=== PATIENT | female | born 1965 | race Caucasian/White ===

== ENCOUNTER 2017-08-29 08:25 | Outpatient (CLI) | payer OTHER | END 2017-08-29 08:26 | disposition home or self-care (01) | LOC: CTENTCT 08:25 | PROVIDERS: ATTEND Specialist | DX: J32.9 Chronic sinusitis, unspecified (principal) | CPT/HCPCS: 70486 ==

== ENCOUNTER 2021-03-22 10:40 | Outpatient (CLI) | payer OTHER | END 2021-03-22 10:41 | disposition home or self-care (01) | LOC: BICRAD 10:40 | PROVIDERS: ATTEND Specialist | DX: J18.9 Pneumonia, unspecified organism (principal); R05 Cough | CPT/HCPCS: 71046 ==

== ENCOUNTER 2022-05-31 10:30 | Outpatient (CLI) | payer OTHER | END 2022-05-31 10:31 | disposition home or self-care (01) | LOC: NM 10:30 | PROVIDERS: ATTEND Specialist | DX: K81.9 Cholecystitis, unspecified (principal) | CPT/HCPCS: 78227; A9537 ==

== ENCOUNTER 2023-07-04 08:46 | Outpatient (CLI) | payer OTHER | END 2023-07-04 08:47 | disposition home or self-care (01) | LOC: RAD 08:46 | PROVIDERS: ATTEND Specialist | DX: M25.551 Pain in right hip (principal) ==